=== PATIENT | male | born 1960 | race Caucasian/White ===

== ENCOUNTER 2017-08-09 21:32 | Emergency (ER) | payer MEDICARE, SELFPAY ==
[2017-08-09 21:33] VITALS: BP 157/100; PULSE 96; RESP 16; TEMP 37; O2SAT 96; BMI 36.0
--- NOTE | 2017-08-09 21:58 | CT_ITS ---
STUDY: CT BRAIN WITHOUT CONTRAST REASON FOR EXAM: Male, 56 years old. Syncope, fall. RADIATION DOSAGE (If Supplied By Facility): CTDIvol = ( 44.99 ) mGy, DLP = ( 779.24 ) mGycm TECHNIQUE: Transaxial CT imaging of the brain was performed without administration of intravenous contrast material. Individualized dose optimization techniques were used for this CT. COMPARISON: None. FINDINGS: Normal soft tissue structures. Normal calvarium. There is moderate cerebral atrophy with widening of the extra-axial spaces and ventricular dilatation. There are areas of decreased attenuation within the white matter tracts of the supratentorial brain, consistent with microvascular disease changes. Normal basal ganglia and thalami. Normal brainstem. Normal cerebellum. There is no intracranial hemorrhage. There are no findings of an acute ischemic infarction. Normal visualized paranasal sinuses. CT/Brain/Head without Contrast IMPRESSION: No evidence of acute intracranial bleed, mass or ischemia. Electronically Signed: Kenneth Samano DO at 22:52 EDT , Service support ,
--- NOTE | 2017-08-09 21:58 | EKG12_ITS ---
Test Reason : SYNCOPE Blood Pressure : / mmHG Vent. Rate : 099 BPM Atrial Rate : 099 BPM P-R Int : 184 ms QRS Dur : 100 ms QT Int : 364 ms P-R-T Axes : 066 -44 064 degrees QTc Int : 467 ms Normal sinus rhythm Left axis deviation Abnormal ECG Confirmed by TRACY SALAZAR, NEIL ([id number]), digital editor YSABEL BLANC ([id number]) on 08/11/2017 1:26:32 PM Referred By: FAROOQ/CARMITA Confirmed By:NEIL MOLINA MD
--- NOTE | 2017-08-09 21:58 | CT_ITS ---
STUDY: CT CERVICAL SPINE WITHOUT CONTRAST REASON FOR EXAM: Male, 56 years old. Fall. RADIATION DOSAGE (If Supplied By Facility): CTDIvol = ( 33.41 ) mGy, DLP = ( 803.16 ) mGycm TECHNIQUE: High resolution transaxial imaging was performed without contrast material. Sagittal and coronal images were reconstructed. Individualized dose optimization techniques were used for this CT. COMPARISON: None FINDINGS: Normal craniovertebral junction. There are degenerative changes of the anterior atlantoaxial articulation. Normal odontoid process. Normal cervical lordosis. Normal vertebral bodies and posterior osseous elements. C2-3: Normal endplates. Normal disc height and morphology. Normal central canal and intervertebral neuroforamina. C3-4: Decreased disc space with disc active by complex and uncovertebral joint arthropathy resulting in moderate right and mild left foraminal narrowing. C4-5: Decreased disc space with compounding uncovertebral joint arthropathy resulting in bilateral moderate foraminal narrowing. C5-6: Decreased disc space and disc osteophyte complex with compounding uncovertebral joint arthropathy resulting in bilateral severe foraminal narrowing. C6-7: Decreased disc space and disc osteophyte complex without significant spinal canal narrowing or foraminal narrowing. C7-T1: Degenerative disc changes without significant spinal canal narrowing or foraminal narrowing. Normal visualized soft tissue structures. CT/Spine Cervical without Contras IMPRESSION: Multilevel degenerative changes as above with no evidence of acute fracture or dislocation. Electronically Signed: Kenneth Samano DO at 22:56 EDT , Service support ,
--- NOTE | 2017-08-09 21:58 | RAD_ITS ---
STUDY: X-RAY CHEST REASON FOR EXAM: Male, 56 years old. Shortness of breath and fall. TECHNIQUE: PA and lateral views of the chest. COMPARISON: None. FINDINGS: The lungs are clear and expanded. There is no demonstrated pleural abnormality. Normal size heart. Normal mediastinum and tylor. Normal visualized pulmonary arteries. Normal visualized aortic arch and descending thoracic aorta. Normal visualized thoracic spine. Normal visualized ribs, clavicles, and shoulders. There is no demonstrated abnormality of the visualized soft tissue structures of the upper abdomen. RAD/Chest PA and Lateral IMPRESSION: No evidence of acute cardiopulmonary process. Electronically Signed: Kenneth Samano DO at 22:53 EDT , Service support ,
[2017-08-09 22:07] LABS: Absolute Lymphocyte Count 2.79 X10^3/ul (0.83-4.51); Absolute Neutrophil Count 2.7 X10^3/uL (2.0-7.7); Basophil# 0.01 X10^3/uL; Basophil% 0.2 % (0-1); Eosinophil# 0.07 X10^3/uL; Eosinophils% 1.2 % (0-5); Hematocrit 44.7 % (40-54); Hemoglobin 15.2 g/dl (13.0-16.5); Lymphocyte # 2.79 X10^3/ul (4.0); Lymphocyte % 46.5 % (19-41); Mean Corpuscular Hgb 29.7 pg (27.0-32.0); Mean Corpuscular Volume 87.3 fL (80-94); Mean Platelet Vol. 9.6 fl (6.2-12.0); Monocyte# 0.44 X10^3/uL; Monocyte% 7.3 % (0-10); Neutrophil # 2.69 X10^3/uL (2.7-7.7); Neutrophil % 44.8 % (47-70); POSITIVE COUNT NO; POSITIVE DIFFERENTIAL NO; POSITIVE MORPHOLOGY NO; Platelet Count 243 K/mm3 (150-450); RBC Distribution Width CV 13.7 % (11.6-14.6); RBC Distribution Width SD 43.8 fl (35.1-43.9); Red Blood Count 5.12 M/mm3 (4.6-6.2)
[2017-08-09 22:15] VITALS: PULSE 68; RESP 18; O2SAT 96
[2017-08-09] MEDS: Ipratropium/Albuterol Sulfate 3 ML AMPUL.NEB INHALATION (22:15)
[2017-08-09 22:32] LABS: Anion Gap 12 (5-15); BUN 11 mg/dL (7-18); BUN/Creat Ratio 10.9 RATIO (10-20); Calcium,Total 8.5 mg/dL (8.5-10.1); Chloride 92 mmol/L (98-107); Creatinine, Serum 1.01 mg/dL (0.70-1.30); EST Glomerular Filtration Rate 81 mL/min (>60); Est Glom Filt Rate - Afr Amer 98 mL/min (>60); Estimated Creatinine Clearance 93.82 ml/min; Glucose 99 mg/dL (74-106); Potassium 2.9 mmol/L (3.5-5.1); Sodium Level 133 mmol/L (136-145)
--- NOTE | 2017-08-09 23:07 | ED.VISSUMM ---
- ER Visit Summary Date of Service: 08/09/17 Chief Complaint: Syncope History of Present Illness: The patient is a 56 M who presents after a syncopal episode, which resulted in him falling out of his chair at the table he was sitting, to the floor injuring his right face and head. He states he has been passing out 3 times per day, every day, for the past 2-3 weeks. He states as it happened tonight, this has been occurring because of coughing hard/bronchospasm each and every time. He feels lightheaded and suddenly passes out during coughing fits. He had no prodromal chest pain, palpitations. No history of heart disease that he knows of. He has had a cough productive of sputum for the past 1-2 weeks, and was placed on doxycycline at the [facility] where he goes. No fevers. No chest pain. States that he drank 4 beers today right before this occurred. Physical Examination: Vital signs are unremarkable, his pulse ox is 96% on room air. He is keenly alert, GCS 15. He has obvious evidence of facial trauma on the right side with contusions and several superficial partial thickness lacerations to the right forehead and eyebrow, 1 cm each ?2, as well as a laceration of the right lower lip, close to the corner of his mouth, involving the vermilion border. This laceration is full-thickness and is approximately 1.5 cm, extending into the mouth mucosal surface. There is no intraoral injury, his midface is nontender and stable, PERRL, EOMI without pain or entrapment. Extremities are atraumatic, good range of motion at baseline with all 4. Heart is regular, he has expiratory wheezing throughout all lung linares and is in no respiratory distress there were no rales or rhonchi. Abdomen is benign. Back and neck nontender. Smells of alcohol but is not grossly intoxicated, is cooperative. Test Results: Labs are normal except for a potassium of 2.9. EKG shows a left axis but is otherwise normal. Chest x-ray shows no acute ab normality's or infiltrates. CT head and cervical spine are negative. Emergency Department Course and Treatment: Patient feels much better after a duo nebulizer treatment. He has been using his inhaler a lot at home, and is on doxycycline but no prednisone. He was given a dose of Solu-Medrol, in addition to a dose of oral potassium. His GCS maintained at 15. I do not think he has any midface fractures nor needs a CT of the maxillofacial bones given his relatively benign exam except for periorbital and right lateral facial ecchymosis, there is no sign of a basilar skull fracture on CT head. He had several facial lacerations, they were locally anesthetized with a total of 7 cc of plain 1% lidocaine, and prepped and draped in a sterile fashion with chlorhexidine, and washed with sterile saline. The one on his forehead was repaired with a total of #4 simple interrupted 6-0 nylon sutures. The one in his right eyebrow was repaired with a total of #3 simple interrupted 6-0 nylon sutures. His mouth/lower lip laceration was repaired with a total of #5 simple interrupted 6-0 nylon sutures, lining the vermilion border up well, and an additional #3 simple interrupted 4-0 chromic gut sutures on the mucosa. He has an injury to the right nasal bridge, where there is tissue loss and no cartilage is exposed and as I discussed with the patient, primary repair is not able to be easily performed. Therefore I recommend healing by secondary intent. A dressing was placed he was given appropriate discharge instructions for suture removal in approximately 5 or 6 days with his PCP or us in the ER. He is comfortable with this plan and has a ride home. Treatment Plan: As above. KCl 20 mEq 3 times daily ?4 days. Prednisone 40 mg daily ?4 additional days. Disposition: Discharge home Impression: Acute COPD exacerbation Vasovagal syncope Acute bronchitis with bronchospasm Hypokalemia Facial laceration ?3 with repair ?3 This note was generated with [employer] dictation software. It may contain incorrect words, spelling, and punctuation that were not noted in review of the chart prior to signing ED Disposition - Plan for ED Patient: Disposition: Home or Assisted Living Chief Complaint: Syncope Instructions: ED Syncope Vasovagal, ED Laceration Mouth, ED Laceration Facial Sutr Tape, ED COPD Flare Prescriptions: Prednisone [Deltasone] 40 mg PO DAILY #8 tab Potassium Chloride [K-Dur] 20 meq PO TID #12 tab Referrals: Maia Feliz, JAZ-C [Primary Care Provider] - 5 Days for suture removal
--- NOTE | 2017-08-09 23:24 | ED.DCSUM_ITS ---
- ER Visit Summary Date of Service: 08/09/17 Chief Complaint: Syncope History of Present Illness: The patient is a 56 M who presents after a syncopal episode, which resulted in him falling out of his chair at the table he was sitting, to the floor injuring his right face and head. He states he has been passing out 3 times per day, every day, for the past 2-3 weeks. He states as it happened tonight, this has been occurring because of coughing hard/ bronchospasm each and every time. He feels lightheaded and suddenly passes out during coughing fits. He had no prodromal chest pain, palpitations. No history of heart disease that he knows of. He has had a cough productive of sputum for the past 1-2 weeks, and was placed on doxycycline at the [facility] where he goes. No fevers. No chest pain. States that he drank 4 beers today right before this occurred. Physical Examination: Vital signs are unremarkable, his pulse ox is 96% on room air. He is keenly alert, GCS 15. He has obvious evidence of facial trauma on the right side with contusions and several superficial partial thickness lacerations to the right forehead and eyebrow, 1 cm each ?2, as well as a laceration of the right lower lip, close to the corner of his mouth, involving the vermilion border. This laceration is full-thickness and is approximately 1.5 cm, extending into the mouth mucosal surface. There is no intraoral injury , his midface is nontender and stable, PERRL, EOMI without pain or entrapment. Extremities are atraumatic, good range of motion at baseline with all 4. Heart is regular, he has expiratory wheezing throughout all lung linares and is in no respiratory distress there were no rales or rhonchi. Abdomen is benign. Back and neck nontender. Smells of alcohol but is not grossly intoxicated, is cooperative. Test Results: Labs are normal except for a potassium of 2.9. EKG shows a left axis but is otherwise normal. Chest x-ray shows no acute ab normality's or infiltrates. CT head and cervical spine are negative. Emergency Department Course and Treatment: Patient feels much better after a duo nebulizer treatment. He has been using his inhaler a lot at home, and is on doxycycline but no prednisone. He was given a dose of Solu-Medrol, in addition to a dose of oral potassium. His GCS maintained at 15. I do not think he has any midface fractures nor needs a CT of the maxillofacial bones given his relatively benign exam except for periorbital and right lateral facial ecchymosis, there is no sign of a basilar skull fracture on CT head. He had several facial lacerations, they were locally anesthetized with a total of 7 cc of plain 1% lidocaine, and prepped and draped in a sterile fashion with chlorhexidine, and washed with sterile saline. The one on his forehead was repaired with a total of #4 simple interrupted 6-0 nylon sutures. The one in his right eyebrow was repaired with a total of #3 simple interrupted 6-0 nylon sutures. His mouth/lower lip laceration was repaired with a total of #5 simple interrupted 6-0 nylon sutures, lining the vermilion border up well, and an additional #3 simple interrupted 4-0 chromic gut sutures on the mucosa. He has an injury to the right nasal bridge, where there is tissue loss and no cartilage is exposed and as I discussed with the patient, primary repair is not able to be easily performed. Therefore I recommend healing by secondary intent. A dressing was placed he was given appropriate discharge instructions for suture removal in approximately 5 or 6 days with his PCP or us in the ER. He is comfortable with this plan and has a ride home. Treatment Plan: As above. KCl 20 mEq 3 times daily ?4 days. Prednisone 40 mg daily ?4 additional days. Disposition: Discharge home Impression: Acute COPD exacerbation Vasovagal syncope Acute bronchitis with bronchospasm Hypokalemia Facial laceration ?3 with repair ?3 This note was generated with [employer] dictation software. It may contain incorrect words, spelling, and punctuation that were not noted in review of the chart prior to signing ED Disposition - Plan for ED Patient: Disposition: Home or Assisted Living Chief Complaint: Syncope Instructions: ED Syncope Vasovagal, ED Laceration Mouth, ED Laceration Facial Sutr Tape, ED COPD Flare Prescriptions: Prednisone [Deltasone] 40 mg PO DAILY #8 tab Potassium Chloride [K-Dur] 20 meq PO TID #12 tab Referrals: Maia Feliz, JAZ-C [Primary Care Provider] - 5 Days for suture removal
[2017-08-09 23:42] VITALS: BP 133/67; PULSE 52; RESP 16; O2SAT 98
[2017-08-10] MEDS: MethylPREDNISolone 125 MG/2 ML Vial IV (00:33)
[2017-08-10 00:34] VITALS: BP 140/93; PULSE 100; RESP 25; O2SAT 97
== END 2017-08-10 00:44 | disposition home or self-care (01) ==
PROVIDERS: Emergency Provider Emergency Medicine; Family Provider Nurse Practitioner Family; PCP Nurse Practitioner Family
DX: J44.1 Chronic obstructive pulmonary disease with (acute) exacerbation (principal); R55 Syncope and collapse; J20.9 Acute bronchitis, unspecified; E87.6 Hypokalemia; S01.511A Laceration without foreign body of lip, initial encounter; W07.XXXA Fall from chair, initial encounter; Y93.9 Activity, unspecified; Y92.000 Kitchen of unspecified non-institutional (private) residence as the place of occurrence of the external cause; Y99.9 Unspecified external cause status; I10 Essential (primary) hypertension; E78.00 Pure hypercholesterolemia, unspecified; Z72.0 Tobacco use
CPT/HCPCS: 12011; 70450; 71046; 72125; 80048; 84484; 85025; 93005; 94640; 99285; J7030; A4216

== ENCOUNTER → 2019-10-28 11:05 | Outpatient (CLI) | payer MEDICARE, SELFPAY ==
--- NOTE | 2019-10-28 11:17 | RAD_ITS ---
STUDY: X-RAY - LUMBAR SPINE REASON FOR EXAM: Male, 59 years old. Low back pain, pain runs into legs TECHNIQUE: 3 view(s) of the lumbar spine were obtained. COMPARISON: None FINDINGS: Normal lumbar lordosis. There is no substantial scoliosis. There is a normal alignment of the vertebrae. There is multilevel endplate spondylosis of the lumbar vertebrae. Normal disc space heights. There is no demonstrated fracture. The soft tissue structures are unremarkable. RAD/Lumbar Spine 2 or 3 Views IMPRESSION: Mild degenerative changes, no acute findings Electronically Signed: Walter Vaz MD at 16:52 EDT , Service support ,
--- NOTE | 2019-10-28 11:17 | RAD_ITS ---
STUDY: X-RAY - THORACIC SPINE REASON FOR EXAM: Male, 59 years old. Mid back pain TECHNIQUE: 4 view(s) of the thoracic spine were obtained. COMPARISON: None. FINDINGS: Normal kyphosis of the thoracic spine. There is no substantial scoliosis. Normal thoracic vertebrae and endplates. Mild disc space narrowing in the thoracic spine. The soft tissue structures are unremarkable. RAD/Thoracic Spine 3 Views IMPRESSION: Mild degenerative changes Electronically Signed: Walter Vaz MD at 16:52 EDT , Service support ,
--- NOTE | 2019-10-28 11:20 | RAD_ITS ---
STUDY: X-RAY CHEST REASON FOR EXAM: Male, 59 years old. Shortness of breath, low O2 TECHNIQUE: PA and lateral views of the chest. COMPARISON: Comparison is made with prior study dated August 09, 2018. FINDINGS: Hyperinflation. The lungs are clear. There is no demonstrated pleural abnormality. Normal size heart. Normal mediastinum and tylor. Normal visualized pulmonary arteries. There is atherosclerotic tortuosity of the aortic arch and descending thoracic aorta. There are degenerative changes of the visualized thoracic spine. Normal visualized ribs, clavicles, and shoulders. Hiatal hernia. RAD/Chest PA and Lateral IMPRESSION: Hyperinflation. The lungs are clear. Hiatal hernia. Electronically Signed: William Karimi, at 12:04 EDT , Service support ,
== END ==
PROVIDERS: Visit Provider Nurse Practitioner Family
DX: R06.00 Dyspnea, unspecified (principal); M54.5 Low back pain
CPT/HCPCS: 71046; 72072; 72100

== ENCOUNTER → 2020-02-15 | Outpatient (CLI) | payer MEDICARE, SELFPAY ==
[2020-02-15 11:24] LABS: Absolute Lymphocyte Count 2.84 X10^3/uL (0.83-4.51); Absolute Neutrophil Count 6.4 X10^3/uL (2.0-7.7); Basophil# 0.04 X10^3/uL; Basophil% 0.4 % (0-1); Eosinophil# 0.14 X10^3/uL; Eosinophils% 1.4 % (0-5); Hematocrit 44.3 % (40-54); Hemoglobin 13.6 g/dL (13.0-16.5); Lymphocyte # 2.84 X10^3/ul (4.0); Lymphocyte % 27.7 % (19-41); Mean Corp Hgb Conc 30.7 g/dL (32-36); Mean Corpuscular Hgb 25.4 pg (27.0-32.0); Mean Corpuscular Volume 82.8 fL (80-94); Monocyte# 0.76 X10^3/uL; Monocyte% 7.4 % (0-10); NRBC Flagged by Analyzer 0 % (0-5); Neutrophil # 6.41 X10^3/uL (2.7-7.7); Neutrophil % 62.6 % (47-70); Platelet Count 322 K/mm3 (150-450); RBC Distribution Width CV 15.2 % (11.6-14.6); RBC Distribution Width SD 45.3 fl (35.1-43.9); Red Blood Count 5.35 M/mm3 (4.6-6.2); White Blood Count 10.2 K/mm3 (4.4-11.0)
[2020-02-15 11:41] LABS: Hemoglobin A1c 6.8 % (3.8-5.6)
[2020-02-15 11:49] LABS: ALB/GLOB Ratio 0.8 RATIO (0.9-2.4); AST(SGOT) 19 U/L (15-37); Alanine Aminotransfer ALT/SGPT 32 U/L (16-61); Albumin, Serum 3.5 g/dL (3.2-5.0); Alkaline Phosphatase 121 U/L (45-117); Anion Gap 8 (5-15); BUN 6 mg/dL (7-18); BUN/Creat Ratio 5.7 RATIO (10-20); Chloride 103 mmol/L (98-107); Cholesterol 156 mg/dL (200); Creatinine, Serum 1.05 mg/dL (0.70-1.30); EST Glomerular Filtration Rate 76 mL/min (>60); Est Glom Filt Rate - Afr Amer 93 mL/min (>60); Globulin 4.2 g/dL (2.2-4.2); Glucose 126 mg/dL (74-106); High Density Lipoprotein 43 mg/dL; Potassium 3.6 mmol/L (3.5-5.1); Protein, Total 7.7 g/dL (6.4-8.2); Sodium Level 140 mmol/L (136-145); Triglycerides 166 mg/dL; Very Low Density Lipoprotein 33 mg/dL (5-40)
[2020-02-15 11:50] LABS: Vitamin D,25 Hydroxy 35.1 ng/mL
== END | disposition home or self-care (01) ==
DX: I10 Essential (primary) hypertension (principal); I25.10 Atherosclerotic heart disease of native coronary artery without angina pectoris; E78.5 Hyperlipidemia, unspecified; E11.9 Type 2 diabetes mellitus without complications; E55.9 Vitamin D deficiency, unspecified
CPT/HCPCS: 36415; 80053; 80061; 82306; 83036; 85025

== ENCOUNTER → 2021-03-27 08:59 | Outpatient (CLI) | payer MEDICARE, SELFPAY ==
[2021-03-27 09:56] LABS: Absolute Lymphocyte Count 2.31 X10^3/uL (0.83-4.51); Absolute Neutrophil Count 5.3 X10^3/uL (2.0-7.7); Basophil# 0.02 X10^3/uL; Basophil% 0.2 % (0-1); Eosinophils% 1.2 % (0-5); Hematocrit 45.2 % (40-54); Hemoglobin 14.7 g/dL (13.0-16.5); Lymphocyte # 2.31 X10^3/ul (0.83-4.51); Lymphocyte % 27.8 % (19-41); Mean Corp Hgb Conc 32.5 g/dL (32-36); Mean Corpuscular Hgb 28.4 pg (27.0-32.0); Mean Corpuscular Volume 87.3 fL (80-94); Mean Platelet Vol. 9.5 fl (6.2-12.0); Monocyte% 7.2 % (0-10); NRBC Flagged by Analyzer 0 % (0-5); Neutrophil # 5.25 X10^3/uL (2.7-7.7); Neutrophil % 63.1 % (47-70); Platelet Count 233 K/mm3 (150-450); RBC Distribution Width CV 14.1 % (11.6-14.6); RBC Distribution Width SD 45.1 fl (35.1-43.9); Red Blood Count 5.18 M/mm3 (4.6-6.2); White Blood Count 8.3 K/mm3 (4.4-11.0)
[2021-03-27 10:55] LABS: ALB/GLOB Ratio 0.8 RATIO (0.9-2.4); AST(SGOT) 38 U/L (15-37); Alanine Aminotransfer ALT/SGPT 63 U/L (16-61); Albumin, Serum 3.5 g/dL (3.2-5.0); Alkaline Phosphatase 86 U/L (45-117); BUN 9 mg/dL (7-18); BUN/Creat Ratio 8.1 RATIO (10-20); Calcium,Total 8.9 mg/dL (8.5-10.1); Chloride 103 mmol/L (98-107); Cholesterol 237 mg/dL (200); Creatinine, Serum 1.11 mg/dL (0.70-1.30); EST Glomerular Filtration Rate 71 mL/min (>60); Est Glom Filt Rate - Afr Amer 86 mL/min (>60); Globulin 4.2 g/dL (2.2-4.2); Glucose 112 mg/dL (74-106); Potassium 4.2 mmol/L (3.5-5.1); Protein, Total 7.7 g/dL (6.4-8.2); Sodium Level 137 mmol/L (136-145); Triglycerides 105 mg/dL; Uric Acid 6.2 mg/dL (3.5-7.2)
[2021-03-27 10:56] LABS: Anion Gap 8 (5-15); High Density Lipoprotein 41 mg/dL; Thyroid Stim Hormone (TSH) 1.88 uIU/mL (0.358-3.74); Very Low Density Lipoprotein 21 mg/dL (5-40)
== END ==
LOC: LAB 09:03
PROVIDERS: Referring Provider Nurse Practitioner Adult Health; Visit Provider Nurse Practitioner Adult Health
DX: I10 Essential (primary) hypertension (principal); E78.5 Hyperlipidemia, unspecified; M10.9 Gout, unspecified; E11.9 Type 2 diabetes mellitus without complications
CPT/HCPCS: 36415; 80053; 80061; 83036; 84443; 84550; 85025

== ENCOUNTER → 2021-04-10 08:49 | Outpatient (CLI) | payer MEDICARE, SELFPAY ==
--- NOTE | 2021-04-10 08:54 | RDU_ITS ---
Reason For Study: HTN Right Renal Artery Left Renal Artery Right renal artery ostium 78.3/25.4 Left renal artery ostium 101.2/28.8 RSV/EDV. PSV/EDV. Right renal artery proximal Left renal artery proximal PSV/EDV 102.1/36.3 PSV/EDV. 109.5/32.7 . Right renal artery mid 74.7/23.6 Left renal artery mid 83.2/23.9 PSV/EDV. PSV/EDV . Right renal artery distal 91.1/32.7 Left renal artery distal 83.2/32.7 PSV/EDV. PSV/EDV. Right RAR 1.32. Left RAR 1.42. Right Renal Parenchyma Left Renal Parenchyma Upper Pole Medula 40.1/12.7 Left upper pole medulla 34.6/13.6 PSV/EDV. PSV/EDV . Right upper pole medulla EDR 0.32 . Left upper pole medulla EDR 0.39 . Right upper pole medulla R.I. Left upper pole medulla R.I. 0.61 . 0.68 . UP Cortex 19.1/7.2 PSV/EDV. Upper Adis Cortx 28.2/10.9 PSV/EDV. Left upper pole cortex EDR 0.38 . Right upper pole cortex EDR 0.39 . Left upper pole cortex R.I. 0.62 . Right upper pole cortex R.I. 0.61 . Left lower Pole medulla 37.3/11.8 Right lower Pole medulla 34.6/10.9 PSV/EDV . PSV/EDV . Left lower pole medulla EDR 0.32 . Right lower pole medulla EDR 0.31 . Left lower pole medulla R.I. 0.68 . Right lower pole medulla R.I. Lower Pole Cortx 19.1/7.2 PSV/EDV. 0.69 . Left lower pole cortex EDR 0.38 . Lower Pole Cortex 23.7/8.1 PSV/EDV. Left lower pole cortex R.I. 0.62 . Right lower pole cortex EDR 0.34 . Left Renal Hilar Right lower pole cortex R.I. 0.66 . LT Hilar avg 57/18.2 PSV/EDV . Right Renal Hilar Left hilar acceleration time 60 Right Hilar avg 54.3/20.1 PSV/EDV. m/sec. Right hilar acceleration time 80 Left Renal Dimensions m/sec. Left kidney size 11.10 cm . Right Renal Dimensions Left cortical dimension 1.49 cm . Right kidney size 10.58 cm . Right cortical dimension 1.88 cm . Aorta Proximal abdominal aorta 1.63 x 1.61 cm . Proximal abdominal aorta peak systolic velocity is 77.3 cm/sec . Distal abdominal aorta 1.83 x 1.79 cm . Distal abdominal aorta peak systolic velocity is 103.9 cm/sec . VL/Renal Artery Duplex Ultrasound Interpretation Summary Less than 60% stenosis bilateral renal arteries Right renal length 10.58 cm Left renal length 11.1 cm Normal aortic diameter maximum distally at 1.83 x 1.79 cm in diameter. Velocity flow was normal in the proximal abdominal aorta Imaging appears to be technically challenging No clinically significant change since the previous examination of December 25 Ordering Physician: Vilma Fuentes Referring Physician: [facility] Performed By: Lizet Gonzales RVT
== END ==
PROVIDERS: Referring Provider Nurse Practitioner Adult Health; Visit Provider Nurse Practitioner Adult Health
DX: I10 Essential (primary) hypertension (principal)
CPT/HCPCS: 93975

== ENCOUNTER → 2022-07-29 | Outpatient (CLI) | payer MEDICARE, SELFPAY ==
[2022-07-29 10:27] LABS: Absolute Lymphocyte Count 2.61 X10^3/uL (0.83-4.51); Absolute Neutrophil Count 5.7 X10^3/uL (2.0-7.7); Basophil# 0.03 X10^3/uL; Basophil% 0.3 % (0-1); Eosinophil# 0.08 X10^3/uL; Eosinophils% 0.9 % (0-5); Hematocrit 47.4 % (40-54); Hemoglobin 15.1 g/dL (13.0-16.5); Lymphocyte # 2.61 X10^3/ul (0.83-4.51); Lymphocyte % 28.6 % (19-41); Mean Corp Hgb Conc 31.9 g/dL (32-36); Mean Corpuscular Volume 87.8 fL (80-94); Mean Platelet Vol. 8.7 fl (6.2-12.0); Monocyte% 7.7 % (0-10); NRBC Flagged by Analyzer 0 % (0-5); Neutrophil # 5.69 X10^3/uL (2.7-7.7); Neutrophil % 62.4 % (47-70); Platelet Count 249 K/mm3 (150-450); RBC Distribution Width CV 14.6 % (11.6-14.6); RBC Distribution Width SD 46.5 fl (35.1-43.9); White Blood Count 9.1 K/mm3 (4.4-11.0)
[2022-07-29 10:42] LABS: Hemoglobin A1c 5.9 % (3.8-5.6)
[2022-07-29 11:26] LABS: ALB/GLOB Ratio 0.9 RATIO (0.9-2.4); AST(SGOT) 46 U/L (15-37); Alanine Aminotransfer ALT/SGPT 49 U/L (16-61); Albumin, Serum 3.6 g/dL (3.2-5.0); Alkaline Phosphatase 82 U/L (45-117); Anion Gap 7 (5-15); BUN 7 mg/dL (7-18); BUN/Creat Ratio 6.5 RATIO (10-20); Chloride 101 mmol/L (98-107); Cholesterol 223 mg/dL (200); Creatinine, Serum 1.07 mg/dL (0.70-1.30); EST Glomerular Filtration Rate 74 mL/min (>60); Est Glom Filt Rate - Afr Amer 90 mL/min (>60); Globulin 4.2 g/dL (2.2-4.2); Glucose 120 mg/dL (74-106); High Density Lipoprotein 49 mg/dL; Potassium 4.2 mmol/L (3.5-5.1); Protein, Total 7.8 g/dL (6.4-8.2); Sodium Level 137 mmol/L (136-145); Triglycerides 86 mg/dL; Very Low Density Lipoprotein 17 mg/dL (5-40)
== END | disposition home or self-care (01) ==
PROVIDERS: Nurse Practitioner Family
DX: I10 Essential (primary) hypertension (principal); E11.9 Type 2 diabetes mellitus without complications; E78.5 Hyperlipidemia, unspecified
CPT/HCPCS: 36415; 80053; 80061; 83036; 85025

== ENCOUNTER → 2024-04-13 | Outpatient (CLI) | payer MEDICARE, SELFPAY ==
[2024-04-13 12:45] LABS: Absolute Lymphocyte Count 1.84 X10^3/uL (0.83-4.51); Absolute Neutrophil Count 6.1 X10^3/uL (2.0-7.7); Basophil# 0.04 X10^3/uL; Basophil% 0.5 % (0-1); Eosinophil# 0.07 X10^3/uL; Eosinophils% 0.8 % (0-5); Hematocrit 47.6 % (40-54); Hemoglobin 15.5 g/dL (13.0-16.5); Lymphocyte # 1.84 X10^3/ul (0.83-4.51); Lymphocyte % 21.2 % (19-41); Mean Corp Hgb Conc 32.6 g/dL (32-36); Mean Corpuscular Hgb 27.9 pg (27.0-32.0); Mean Corpuscular Volume 85.8 fL (80-94); Mean Platelet Vol. 9.5 fl (6.2-12.0); Monocyte% 6.9 % (0-10); NRBC Flagged by Analyzer 0 % (0-5); Neutrophil # 6.11 X10^3/uL (2.7-7.7); Neutrophil % 70.5 % (47-70); Platelet Count 239 K/mm3 (150-450); RBC Distribution Width SD 43.8 fl (35.1-43.9); Red Blood Count 5.55 M/mm3 (4.6-6.2); White Blood Count 8.7 K/mm3 (4.4-11.0)
[2024-04-13 13:03] LABS: Hemoglobin A1c 5.4 % (3.8-5.6)
[2024-04-13 13:19] LABS: Vitamin D,25 Hydroxy 33.6 ng/mL
[2024-04-13 13:28] LABS: AST(SGOT) 20 U/L (15-37); Alanine Aminotransfer ALT/SGPT 31 U/L (16-61); Albumin, Serum 3.8 g/dL (3.2-5.0); Alkaline Phosphatase 88 U/L (45-117); Anion Gap 7 (5-15); BUN 9 mg/dL (7-18); BUN/Creat Ratio 8.2 RATIO (10-20); Calcium,Total 8.9 mg/dL (8.5-10.1); Chloride 105 mmol/L (98-107); Cholesterol 184 mg/dL (200); EST Glomerular Filtration Rate 72 mL/min (>60); Est Glom Filt Rate - Afr Amer 87 mL/min (>60); Globulin 3.7 g/dL (2.2-4.2); Glucose 149 mg/dL (74-106); High Density Lipoprotein 61 mg/dL; PSA,Total - Annual Screen 0.17 ng/mL (0.00-4.00); Protein, Total 7.5 g/dL (6.4-8.2); Sodium Level 139 mmol/L (136-145); Triglycerides 65 mg/dL; Very Low Density Lipoprotein 13 mg/dL (5-40)
== END | disposition home or self-care (01) ==
LOC: VSLAB 12:09
PROVIDERS: PCP Nurse Practitioner Family; Visit Provider Nurse Practitioner Family
DX: Z12.5 Encounter for screening for malignant neoplasm of prostate (principal); R73.03 Prediabetes; I10 Essential (primary) hypertension; E55.9 Vitamin D deficiency, unspecified; I25.10 Atherosclerotic heart disease of native coronary artery without angina pectoris
CPT/HCPCS: 36415; 80053; 80061; 82306; 83036; 84153; 84443; 85025; G0103

== ENCOUNTER → 2025-02-28 | Outpatient (CLI) | payer MEDICARE, SELFPAY ==
[2025-02-28 10:05] LABS: Hematocrit 46.7 % (40-54); Hemoglobin 16.1 g/dL (13.0-16.5); Immature Granulocytes Count 0.030 X10^3/uL (0.0-0.0); Mean Corp Hgb Conc 34.5 g/dL (32-36); Mean Corpuscular Volume 93.4 fL (80-94); Mean Platelet Vol. 9.1 fl (6.2-12.0); NRBC Flagged by Analyzer 0 % (0-5); Platelet Count 172 K/mm3 (150-450); RBC Distribution Width CV 12.2 % (11.6-14.6); RBC Distribution Width SD 41.9 fl (35.1-43.9); Red Blood Count 5.00 M/mm3 (4.6-6.2); White Blood Count 7.3 K/mm3 (4.4-11.0)
--- OUTSIDE RECORDS SUMMARY | 2025-02-28 10:07 | XMS RPT_ITS | CCD ---
Author Organization [facility] Care Team Providers Care Utility Sales And Service Manager Name Role Phone YOU BAUTISTA, OLIVIER Attending Unava ilelinor PHYSICIAN, NONE Primary Care Unavailable You CORTEZ, Olivier Attending Unavailabl e You C, Olivier Primary Care Unavailabl e You VSC, Olivier Attending Unavailabl e You C, Olivier Primary Care Unavailabl e Problems Problem Classification Problem Date Documented Da te Episodic/Chronic Other screening for suspected conditions (not mental disorders or infectious disease) (1 source) Encounter for screening for malignant neoplasm of prostate; Translations: [Encounter for screening for malignant neoplasm of prostate] Onset: 05-12-2024 Episodic Results Test Name Value Interpretation Reference Range Facil ity CBC W/Diff, Automatedon 12-0 Absolute Lymph 1.84 X10 3/uL Normal 0.83-4.51 [facility] Comment on above: Performed By: #### L 500.4050, L501.9520, L501.9910, L100.0100, L506.1000, L500.4100, L501.9985 #### [facility] [address] [place], [address] Absolute Neut 6.1 X10 3/uL Normal 2.0-7.7 [facility] Comment on above: Performed By: #### L 500.4050, L501.9520, L501.9910, L100.0100, L506.1000, L500.4100, L501.9985 #### [facility] [address] [place], [address] Basophils/100 WBC (Bld) 0.5 % Normal 0-1 [facility] Comment on above: Performed By: #### L 500.4050, L501.9520, L501.9910, L100.0100, L506.1000, L500.4100, L501.9985 #### [facility] [address] [place], [address] Eosinophils/100 WBC (Bld) 0.8 % Normal 0-5 [facility] Comment on above: Performed By: #### L 500.4050, L501.9520, L501.9910, L100.0100, L506.1000, L500.4100, L501.9985 #### [facility] [address] [place], [address] Erythrocyte distribution width (RBC) [Ratio] 14.0 % Normal 11.6-14.6 [facility] Comment on above: Performed By: #### L 500.4050, L501.9520, L501.9910, L100.0100, L506.1000, L500.4100, L501.9985 #### [facility] [address] [place], [address] Hematocrit (Bld) [Volume fraction] 47.6 % Normal 40-54 [facility] Comment on above: Performed By: #### L 500.4050, L501.9520, L501.9910, L100.0100, L506.1000, L500.4100, L501.9985 #### [facility] [address] [place], [address] Hemoglobin (Bld) [Mass/Vol] 15.5 g/dL Normal 13.0-16.5 [facility] Comment on above: Performed By: #### L 500.4050, L501.9520, L501.9910, L100.0100, L506.1000, L500.4100, L501.9985 #### [facility] [address] [place], [address] IG% 0.100 Normal 0.0-0.9 [facility] Comment on above: Result Comment: IG% - Immature Granulocytes (promyelocytes, myelocytes and metamyelocytes) > 1% indicates that a LEFT SHIFT is Present. Performed By: #### L 500.4050, L501.9520, L501.9910, L100.0100, L506.1000, L500.4100, L501.9985 #### [facility] [address] [place], [address] Lymphocytes/100 WBC (Bld) 21.2 % Normal 19-41 [facility] Comment on above: Performed By: #### L 500.4050, L501.9520, L501.9910, L100.0100, L506.1000, L500.4100, L501.9985 #### [facility] [address] [place], [address] MCH (RBC) [Entitic mass] 27.9 pg Normal 27.0-32.0 [facility] Comment on above: Performed By: #### L 500.4050, L501.9520, L501.9910, L100.0100, L506.1000, L500.4100, L501.9985 #### [facility] [address] [place], [address] MCHC (RBC) [Mass/Vol] 32.6 g/dL Normal 32-36 [facility] Comment on above: Performed By: #### L 500.4050, L501.9520, L501.9910, L100.0100, L506.1000, L500.4100, L501.9985 #### [facility] [address] [place], [address] MCV (RBC) [Entitic vol] 85.8 fL Normal 80-94 [facility] Comment on above: Performed By: #### L 500.4050, L501.9520, L501.9910, L100.0100, L506.1000, L500.4100, L501.9985 #### [facility] [address] [place], [address] Monocytes/100 WBC (Bld) 6.9 % Normal 0-10 [facility] Comment on above: Performed By: #### L 500.4050, L501.9520, L501.9910, L100.0100, L506.1000, L500.4100, L501.9985 #### [facility] [address] [place], [address] Neutrophils/100 WBC (Bld) 70.5 % High 47-70 [facility] Comment on above: Performed By: #### L 500.4050, L501.9520, L501.9910, L100.0100, L506.1000, L500.4100, L501.9985 #### [facility] [address] [place], [address] Nucleated RBC (Bld) [#/Vol] 0 10*3/uL Normal 0-5 [facility] Comment on above: Performed By: #### L 500.4050, L501.9520, L501.9910, L100.0100, L506.1000, L500.4100, L501.9985 #### [facility] [address] [place], [address] Platelet mean volume (Bld) [Entitic vol] 9.5 fL Normal 6.2-12.0 [facility] Comment on above: Performed By: #### L 500.4050, L501.9520, L501.9910, L100.0100, L506.1000, L500.4100, L501.9985 #### [facility] [address] [place], [address] Platelets (Bld) [#/Vol] 239 10*3/uL Normal 150-450 [facility] Comment on above: Performed By: #### L 500.4050, L501.9520, L501.9910, L100.0100, L506.1000, L500.4100, L501.9985 #### [facility] [address] [place], [address] RBC (Bld) [#/Vol] 5.55 10*6/uL Normal 4.6-6.2 [facility] Comment on above: Performed By: #### L 500.4050, L501.9520, L501.9910, L100.0100, L506.1000, L500.4100, L501.9985 #### [facility] [address] [place], [address] RDW SD 43.8 fl Normal 35.1-43.9 [facility] Comment on above: Performed By: #### L 500.4050, L501.9520, L501.9910, L100.0100, L506.1000, L500.4100, L501.9985 #### [facility] [address] [place], [address] WBC (Bld) [#/Vol] 8.7 10*3/uL Normal 4.4-11.0 [facility] Comment on above: Performed By: #### L 500.4050, L501.9520, L501.9910, L100.0100, L506.1000, L500.4100, L501.9985 #### [facility] [address] [place], [address] Comprehensive Metabolic Prof ilon 04-13-2024 Albumin [Mass/Vol] 3.8 g/dL Normal 3.2-5.0 [facility] Comment on above: Performed By: #### L 500.4050, L501.9520, L501.9910, L100.0100, L506.1000, L500.4100, L501.9985 #### [facility] [address] [place], [address] Albumin/Globulin [Mass ratio] 1.0 {ratio} Normal 0.9-2.4 [facility] Comment on above: Performed By: #### L 500.4050, L501.9520, L501.9910, L100.0100, L506.1000, L500.4100, L501.9985 #### [facility] [address] [place], [address] ALK P 88 U/L Normal 45-117 [facility] Comment on above: Performed By: #### L 500.4050, L501.9520, L501.9910, L100.0100, L506.1000, L500.4100, L501.9985 #### [facility] [address] [place], [address] ALT [Catalytic activity/Vol] 31 U/L Normal 16-61 [facility] Comment on above: Performed By: #### L 500.4050, L501.9520, L501.9910, L100.0100, L506.1000, L500.4100, L501.9985 #### [facility] [address] [place], [address] AST [Catalytic activity/Vol] 20 U/L Normal 15-37 [facility] Comment on above: Performed By: #### L 500.4050, L501.9520, L501.9910, L100.0100, L506.1000, L500.4100, L501.9985 #### [facility] [address] [place], [address] Bilirubin [Mass/Vol] 0.50 mg/dL Normal 0.20-1.00 [facility] Comment on above: Result Comment: For patients on eltrombopag therapy, use of Dimension [place] TBIL is not recommended. Performed By: #### L 500.4050, L501.9520, L501.9910, L100.0100, L506.1000, L500.4100, L501.9985 #### [facility] [address] [place], [address] BUN/CRE 8.2 RATIO Low 10-20 [facility] Comment on above: Performed By: #### L 500.4050, L501.9520, L501.9910, L100.0100, L506.1000, L500.4100, L501.9985 #### [facility] [address] [place], [address] CA,Total 8.9 mg/dL Normal 8.5-10.1 [facility] Comment on above: Performed By: #### L 500.4050, L501.9520, L501.9910, L100.0100, L506.1000, L500.4100, L501.9985 #### [facility] [address] [place], [address] Chloride [Moles/Vol] 105 mmol/L Normal 98-107 [facility] Comment on above: Performed By: #### L 500.4050, L501.9520, L501.9910, L100.0100, L506.1000, L500.4100, L501.9985 #### [facility] [address] [place], [address] CO2 [Moles/Vol] 27.0 mmol/L Normal 21.0-32.0 [facility] Comment on above: Performed By: #### L 500.4050, L501.9520, L501.9910, L100.0100, L506.1000, L500.4100, L501.9985 #### [facility] [address] [place], [address] Creatinine [Mass/Vol] 1.10 mg/dL Normal 0.70-1.30 [facility] Comment on above: Result Comment: The validity of the calculated GFR GFRAA in patients over 70 years has not been determined. Clinical correlation is essential. Performed By: #### L 500.4050, L501.9520, L501.9910, L100.0100, L506.1000, L500.4100, L501.9985 #### [facility] [address] [place], [place], [id number] (009 EST GFR - AA 87 mL/min Normal >60 [facility] Comment on above: Result Comment: Afri can Beninese GFR Calc Performed By: #### L 500.4050, L501.9520, L501.9910, L100.0100, L506.1000, L500.4100, L501.9985 #### [facility] [address] [place], [place], [id number] (705) GAP 7 Normal 5-15 [facility] Comment on above: Performed By: #### L 500.4050, L501.9520, L501.9910, L100.0100, L506.1000, L500.4100, L501.9985 #### [facility] [address] [place], [place], [id number] ([address] GFR/1.73 sq M.predicted among non-blacks MDRD (S/P/Bld) [Vol rate/Area] 72 mL/min/{1.73_m2} Normal >60 [facility] Comment on above: Result Comment: Non- GFR Calc Performed By: #### L 500.4050, L501.9520, L501.9910, L100.0100, L506.1000, L500.4100, L501.9985 #### [facility] [address] [place], [address] Globulin (S) [Mass/Vol] 3.7 g/dL Normal 2.2-4.2 [facility] Comment on above: Performed By: #### L 500.4050, L501.9520, L501.9910, L100.0100, L506.1000, L500.4100, L501.9985 #### [facility] [address] [place], [address] Glucose [Mass/Vol] 149 mg/dL High 74-106 [facility] Comment on above: Result Comment: Fast ing Glucose result greater than or equal to 126 mg/dL suggests DIABETES MELLITUS per A.D.A. criteria. Performed By: #### L 500.4050, L501.9520, L501.9910, L100.0100, L506.1000, L500.4100, L501.9985 #### [facility] [address] [place], [address] Potassium [Moles/Vol] 4.0 mmol/L Normal 3.5-5.1 [facility] Comment on above: Performed By: #### L 500.4050, L501.9520, L501.9910, L100.0100, L506.1000, L500.4100, L501.9985 #### [facility] [address] [place], [address] Sodium [Moles/Vol] 139 mmol/L Normal 136-145 [facility] Comment on above: Performed By: #### L 500.4050, L501.9520, L501.9910, L100.0100, L506.1000, L500.4100, L501.9985 #### [facility] [address] [place], [address] T PROT 7.5 g/dL Normal 6.4-8.2 [facility] Comment on above: Performed By: #### L 500.4050, L501.9520, L501.9910, L100.0100, L506.1000, L500.4100, L501.9985 #### [facility] [address] [place], [place], [id number] Urea nitrogen [Mass/Vol] 9 mg/dL Normal 7-18 [facility] Comment on above: Performed By: #### L 500.4050, L501.9520, L501.9910, L100.0100, L506.1000, L500.4100, L501.9985 #### [facility] [address] [place], [place], [id number] Hemoglobin A1con 04-13-2024 HbA1c (Bld) [Mass fraction] 5.4 % Normal 3.8-5.6 [facility] Comment on above: Result Comment: Norm al < 5.7 % Prediabetic 5.7 - 6.4 % Diabetic >or= 6.5 % Please note range changes. Performed By: #### L 500.4050, L501.9520, L501.9910, L100.0100, L506.1000, L500.4100, L501.9985 #### [facility] [address] [place], [place], [id number] Lipid Profileon 04-13-2024 Cholesterol [Mass/Vol] 184 mg/dL Normal 200 [facility] Comment on above: Result Comment: <200 mg/dL Desirable 200-240 mg/dL Borderline >240 mg/dL High Risk Performed By: #### L 500.4050, L501.9520, L501.9910, L100.0100, L506.1000, L500.4100, L501.9985 #### [facility] [address] [place], [place], [id number] Cholesterol in HDL [Mass/Vol] 61 mg/dL Normal [facility] Comment on above: Result Comment: The drugs N-Acetylcysteine and Metamizole may falsely depress this assay. Reference Range HDL <40 mg/dL Low HDL Cholesterol HDL >or= 60 mg/dL High HDL Cholesterol Performed By: #### L 500.4050, L501.9520, L501.9910, L100.0100, L506.1000, L500.4100, L501.9985 #### [facility] [address] [place], [address] Cholesterol in LDL [Mass/Vol] 110 mg/dL Normal 0-130 [facility] Comment on above: Performed By: #### L 500.4050, L501.9520, L501.9910, L100.0100, L506.1000, L500.4100, L501.9985 #### [facility] [address] [place], [address] Cholesterol in VLDL [Mass/Vol] 13 mg/dL Normal 5-40 [facility] Comment on above: Performed By: #### L 500.4050, L501.9520, L501.9910, L100.0100, L506.1000, L500.4100, L501.9985 #### [facility] [address] [place], [address] Triglyceride [Mass/Vol] 65 mg/dL Normal [facility] Comment on above: Result Comment: The drugs N-Acetylcysteine and Metamizole may falsely depress this assay. Serum Triglycerides Reference Interval Normal <150 mg/dL Borderline high 150 - 199 mg/dL High 200 - 499 mg/dL Very High > or = 500 mg/dL Performed By: #### L 500.4050, L501.9520, L501.9910, L100.0100, L506.1000, L500.4100, L501.9985 #### [facility] [address] [place], [address] PSA,Total - Annual Screenon 04-13-2024 PSA,TOT SCREEN 0.17 ng/mL Normal 0.00-4.00 [facility] Comment on above: Result Comment: This test was performed using the TPSA assay method for the [employer] chemistry system. Values obtained with different assay methods cannot be used interchangably. When changing PSA assays in the course of monitoring a patient, additional sequential testing should be carried out to confirm baseline values. Performed By: #### L 500.4050, L501.9520, L501.9910, L100.0100, L506.1000, L500.4100, L501.9985 #### [facility] [address] [place], [place], [id number] Thyroid Stim Hormone (TSH)on 04-13-2024 TSH 1.290 uIU/mL Normal 0.358-3.740 [facility] Comment on above: Performed By: #### L 500.4050, L501.9520, L501.9910, L100.0100, L506.1000, L500.4100, L501.9985 #### [facility] [address] [place], [address] Vitamin D,25 Hydroxyon 04-13 Vitamin D 25-OH 33.6 ng/mL Normal [facility] Comment on above: Result Comment: Laura min D 25(OH) Status Range Deficiency <20 ng/mL (50nmol/L) Insufficiency 20 - 30 ng/mL (50 - 75 nmol/L) Sufficiency 30 - 100 ng/mL (75 - 250 nmol/L) Toxicity >100 ng/mL (>250 nmol/L) Performed By: #### L 500.4050, L501.9520, L501.9910, L100.0100, L506.1000, L500.4100, L501.9985 #### [facility] [address] [place], [place], [id number] .Auto Diffon 08-18-2023 Basophil, Absolute 0.0 10 3/mcL Normal 0.0-0.2 [facility] ([place]) Comment on above: Performed By: #### A 1C, CBC, ADIFF, ANEU, TSH, CMP, GFR, LIPID #### Lucinda Ryan [address] [place], [place] [address] Basophils/100 WBC (Bld) 0.6 % Normal 0.0-2.5 [facility] ([place]) Comment on above: Performed By: #### A 1C, CBC, ADIFF, ANEU, TSH, CMP, GFR, LIPID #### [address] [address] Eosinophil, Absolute 0.1 10 3/mcL Normal 0.0-0.4 [facility] ([place] Comment on above: Performed By: #### A 1C, CBC, ADIFF, ANEU, TSH, CMP, GFR, LIPID #### [address] [address] Eosinophils/100 WBC (Bld) 1.3 % Normal 0.0-7.0 [facility] ([place] Comment on above: Performed By: #### A 1C, CBC, ADIFF, ANEU, TSH, CMP, GFR, LIPID #### [address] [address] Lymphocyte, Absolute 2.5 10 3/mcL Normal 0.8-3.9 [facility] ([place] Comment on above: Performed By: #### A 1C, CBC, ADIFF, ANEU, TSH, CMP, GFR, LIPID #### [address] [address] Lymphocytes/100 WBC (Bld) 34.7 % Normal 10.0-50.0 [facility] ([place] Comment on above: Performed By: #### A 1C, CBC, ADIFF, ANEU, TSH, CMP, GFR, LIPID #### [address] [address] Monocyte, Absolute 0.6 10 3/mcL Normal 0.2-1.0 [facility] ([place]) Comment on above: Performed By: #### A 1C, CBC, ADIFF, ANEU, TSH, CMP, GFR, LIPID #### [address] [address] Monocytes/100 WBC (Bld) 7.8 % Normal 1.7-13.0 [facility] ([place] Comment on above: Performed By: #### A 1C, CBC, ADIFF, ANEU, TSH, CMP, GFR, LIPID #### [address] [address] Neutrophils/100 WBC (Bld) 55.6 % Normal 37.0-80.0 [facility] ([place] Comment on above: Performed By: #### A 1C, CBC, ADIFF, ANEU, TSH, CMP, GFR, LIPID #### [address] [address] .GFRon 08-18-2023 GFR 73 ml/min/1.73sqm Normal [facility] ([place] Comment on above: Result Comment: GFR Population mean for , Non- Americans Ages 20-29 = 116 mL/min/1.73 sq.m. Ages 30-39 = 107 mL/min/1.73 sq.m. Ages 40-49 = 99 mL/min/1.73 sq.m. Ages 50-59 = 93 mL/min/1.73 sq.m. Ages 60-69 = 85 mL/min/1.73 sq.m. Ages 70+ = 75 mL/min/1.73 sq.m. Chronic Kidney Disease: Less than 60 mL/min/1.73 square meters End Stage Renal Disease: Less than 15 mL/min/1.73 square meters Performed By: #### A 1C, CBC, ADIFF, ANEU, TSH, CMP, GFR, LIPID #### [address] [address] GFR Non- 60 ml/min/1.73sqm Normal [facility] ([place] Comment on above: Result Comment: GFR Population mean for , Non- Americans Ages 20-29 = 116 mL/min/1.73 sq.m. Ages 30-39 = 107 mL/min/1.73 sq.m. Ages 40-49 = 99 mL/min/1.73 sq.m. Ages 50-59 = 93 mL/min/1.73 sq.m. Ages 60-69 = 85 mL/min/1.73 sq.m. Ages 70+ = 75 mL/min/1.73 sq.m. Chronic Kidney Disease: Less than 60 mL/min/1.73 square meters End Stage Renal Disease: Less than 15 mL/min/1.73 square meters Performed By: #### A 1C, CBC, ADIFF, ANEU, TSH, CMP, GFR, LIPID #### [address] [address] .NEUABSon 08-18-2023 Neutrophil, Absolute 4.0 10 3/mcL Normal 2.9-6.2 [facility] ([place]) Comment on above: Performed By: #### A 1C, CBC, ADIFF, ANEU, TSH, CMP, GFR, LIPID #### [place] [id number] A1Con 08-18-2023 HbA1c (Bld) [Mass fraction] 6.0 % Normal 4.3-6.4 [facility] ([place]) Comment on above: Performed By: #### A 1C, CBC, ADIFF, ANEU, TSH, CMP, GFR, LIPID #### [place] [address] CBCon 08-18-2023 Erythrocyte distribution width (RBC) [Ratio] 15.4 % High 11.5-14.5 [facility] ([place] Comment on above: Performed By: #### A 1C, CBC, ADIFF, ANEU, TSH, CMP, GFR, LIPID #### [place] [address] Hematocrit (Bld) [Volume fraction] 44.3 % Normal 42.0-52.0 [facility] ([place] Comment on above: Performed By: #### A 1C, CBC, ADIFF, ANEU, TSH, CMP, GFR, LIPID #### [address] [address] Hgb 14.8 G/dL Normal 14.0-18.0 [facility] ([place] Comment on above: Performed By: #### A 1C, CBC, ADIFF, ANEU, TSH, CMP, GFR, LIPID #### [place] [address] MCH (RBC) [Entitic mass] 27.5 pg Normal 27.0-31.2 [facility] ([place] Comment on above: Performed By: #### A 1C, CBC, ADIFF, ANEU, TSH, CMP, GFR, LIPID #### [place] [address] MCHC 33.3 G/dL Normal 31.8-35.4 [facility] ([place] Comment on above: Performed By: #### A 1C, CBC, ADIFF, ANEU, TSH, CMP, GFR, LIPID #### [address] [address] MCV (RBC) [Entitic vol] 82.5 fL Normal 80.0-94.0 [facility] ([place] Comment on above: Performed By: #### A 1C, CBC, ADIFF, ANEU, TSH, CMP, GFR, LIPID #### [address] [address] Platelet 278 10 3/mcL Normal 130-400 [facility] ([place]) Comment on above: Performed By: #### A 1C, CBC, ADIFF, ANEU, TSH, CMP, GFR, LIPID #### [address] [address] Platelet mean volume (Bld) [Entitic vol] 7.6 fL Normal 7.4-10.4 [facility] ([place]) Comment on above: Performed By: #### A 1C, CBC, ADIFF, ANEU, TSH, CMP, GFR, LIPID #### [address] [address] RBC 5.37 10 6/mcL Normal 4.04-6.13 [facility] ([place]) Comment on above: Performed By: #### A 1C, CBC, ADIFF, ANEU, TSH, CMP, GFR, LIPID #### [address] [address] WBC 7.2 10 3/mcL Normal 4.6-10.8 [facility] ([place]) Comment on above: Performed By: #### A 1C, CBC, ADIFF, ANEU, TSH, CMP, GFR, LIPID #### [address] [address] CMPon 08-18-2023 Albumin Level 3.7 G/dL Normal 3.4-4.8 [facility] ([place]) Comment on above: Performed By: #### A 1C, CBC, ADIFF, ANEU, TSH, CMP, GFR, LIPID #### [address] [address] Albumin/Globulin [Mass ratio] 0.9 {ratio} Low 1.1-2.5 [facility] ([place] Comment on above: Performed By: #### A 1C, CBC, ADIFF, ANEU, TSH, CMP, GFR, LIPID #### [address] [address] ALP [Catalytic activity/Vol] 91 U/L Normal 40-135 [facility] ([place] Comment on above: Performed By: #### A 1C, CBC, ADIFF, ANEU, TSH, CMP, GFR, LIPID #### [address] [address] ALT [Catalytic activity/Vol] 43 U/L Normal 16-63 [facility] ([place] Comment on above: Performed By: #### A 1C, CBC, ADIFF, ANEU, TSH, CMP, GFR, LIPID #### [address] [address] AST [Catalytic activity/Vol] 34 U/L Normal 10-40 [facility] ([place] Comment on above: Performed By: #### A 1C, CBC, ADIFF, ANEU, TSH, CMP, GFR, LIPID #### [address] [address] Bili Total 0.5 mg/dL Normal 0.2-1.0 [facility] ([place] Comment on above: Result Comment: Use of this assay is not recommended for patients undergoing treatment with eltrombopag due to the potential for falsely elevated results. Performed By: #### A 1C, CBC, ADIFF, ANEU, TSH, CMP, GFR, LIPID #### [address] [address] BUN/Creatinine Ratio 6 ratio Low 7-27 [facility] ([place] Comment on above: Performed By: #### A 1C, CBC, ADIFF, ANEU, TSH, CMP, GFR, LIPID #### [address] [address] Calcium [Mass/Vol] 9.0 mg/dL Normal 8.4-10.2 [facility] ([place]) Comment on above: Performed By: #### A 1C, CBC, ADIFF, ANEU, TSH, CMP, GFR, LIPID #### [address] [address] Chloride [Moles/Vol] 97 mmol/L Low 98-107 [facility] ([place]) Comment on above: Performed By: #### A 1C, CBC, ADIFF, ANEU, TSH, CMP, GFR, LIPID #### [address] [address] CO2 [Moles/Vol] 31 mmol/L Normal 23-31 [facility] ([place]) Comment on above: Performed By: #### A 1C, CBC, ADIFF, ANEU, TSH, CMP, GFR, LIPID #### [address] [address] Creatinine [Mass/Vol] 1.21 mg/dL Normal 0.70-1.30 [facility] ([place]) Comment on above: Performed By: #### A 1C, CBC, ADIFF, ANEU, TSH, CMP, GFR, LIPID #### [address] [address] Electrolyte Balance 11.0 mEq/L Normal 4.0-15.0 [facility] ([place]) Comment on above: Performed By: #### A 1C, CBC, ADIFF, ANEU, TSH, CMP, GFR, LIPID #### [address] [address] Globulin 3.9 G/dL Normal [facility] ([place]) Comment on above: Performed By: #### A 1C, CBC, ADIFF, ANEU, TSH, CMP, GFR, LIPID #### [address] [address] Glucose [Mass/Vol] 115 mg/dL Normal 80-115 [facility] ([place]) Comment on above: Performed By: #### A 1C, CBC, ADIFF, ANEU, TSH, CMP, GFR, LIPID #### [address] [address] Potassium [Moles/Vol] 4.3 mmol/L Normal 3.5-5.1 [facility] ([place] Comment on above: Performed By: #### A 1C, CBC, ADIFF, ANEU, TSH, CMP, GFR, LIPID #### [address] [address] Sodium [Moles/Vol] 139 mmol/L Normal 136-145 [facility] ([place]) Comment on above: Performed By: #### A 1C, CBC, ADIFF, ANEU, TSH, CMP, GFR, LIPID #### [address] [address] Total Protein 7.6 G/dL Normal 6.4-8.2 [facility] ([place]) Comment on above: Performed By: #### A 1C, CBC, ADIFF, ANEU, TSH, CMP, GFR, LIPID #### [address] [address] Urea nitrogen [Mass/Vol] 7 mg/dL Normal 7-18 [facility] ([place]) Comment on above: Performed By: #### A 1C, CBC, ADIFF, ANEU, TSH, CMP, GFR, LIPID #### [address] [address] LIPIDon 08-18-2023 Cholesterol [Mass/Vol] 206 mg/dL High 0-200 [facility] ([place]) Comment on above: Result Comment: Chol esterol Reference Interval: Less than 200 Desirable 200-239 Borderline high risk 240 and above High risk Performed By: #### A 1C, CBC, ADIFF, ANEU, TSH, CMP, GFR, LIPID #### [address] [address] Cholesterol in HDL [Mass/Vol] 51 mg/dL Normal 40-60 [facility] ([place]) Comment on above: Performed By: #### A 1C, CBC, ADIFF, ANEU, TSH, CMP, GFR, LIPID #### [address] [address] Cholesterol in LDL [Mass/Vol] 136 mg/dL High 0-130 [facility] ([place]) Comment on above: Performed By: #### A 1C, CBC, ADIFF, ANEU, TSH, CMP, GFR, LIPID #### [address] [place], [place] [address] Triglyceride [Mass/Vol] 97 mg/dL Normal 0-150 [facility] ([place]) Comment on above: Result Comment: Trig lyceride Reference Interval: Less than 150 Normal 150-199 Borderline high risk 200-499 High risk 500 or higher Very high risk Performed By: #### A 1C, CBC, ADIFF, ANEU, TSH, CMP, GFR, LIPID #### [address] [place], [place] [address] TSHon 08-18-2023 TSH Qn 2.10 m[IU]/L Normal 0.36-3.74 [facility] ([place]) Comment on above: Performed By: #### A 1C, CBC, ADIFF, ANEU, TSH, CMP, GFR, LIPID #### [id number] [place], [place] [address] CR Knee 1 or 2 Views Righton 09-21-2020 CR Knee 1 or 2 Views Right Patient Name: SHAQ ABURTO Diagnostic Radiology ACCESSION EXAM DATE/TIME PROCEDURE ORDERING PROVIDER [id number] 09/21/2020 12:30 EDT CR Knee 1 or 2 Views [id number] -LIZETTE HOYT Right CPT code 52620 Reason For Exam (CR Knee 1 or 2 Views Right) pain in right knee Report EXAMINATION: Right knee: AP and lateral views. COMPARISON: None. REASON FOR STUDY: Right knee pain. FINDINGS: Fixation devices are observed in the femur and proximal tibia. There is residual bone distortion from remote injury. Bones are demineralized. Periarticular osteophytes are observed at the patellofemoral and tibiofemoral joints. Soft tissues appear normal. CONCLUSION(S): 1. No evidence of acute bone injury or malalignment. 2. Osteoarthrosis. 3. Residual bone distortion from remote injury. Report Dictated on Final Dictating Physician: MD BULLOCK B NELSON Signed Date and Time: 09/21/2020 4:13 pm Signed by: MD BULLOCK B NELSON Transcribed Date and Time: 09/21/2020 4:14 Normal [facility] CR Spine Lumbosacral 2 or 3 Viewson 09-21-2020 CR Spine Lumbosacral 2 or 3 Views Patient Name: SHAQ ABURTO Diagnostic Radiology ACCESSION EXAM DATE/TIME PROCEDURE ORDERING PROVIDER [id number] 09/21/2020 12:30 EDT CR Spine Lumbosacral 2 [id number] -HOYT, LIZETTE or 3 Views CPT code 80189 Reason For Exam (CR Spine Lumbosacral 2 or 3 Views) low back pain Report LUMBAR SPINE 3 VIEWS CLINICAL INDICATION: low back pain TECHNIQUE: 3 views of the lumbar spine. COMPARISON: None. FINDINGS: No acute loss of height or gross malalignment of vertebral bodies. No osseous destruction. Mild-moderate disc space narrowing and endplate degenerative change in the L4-L5 level. Mild endplate sclerosis/spurring in L1-L2 and L3-L4 levels. More pronounced facet sclerosis/arthrosis in the lower lumbar spine. Similar degenerative change in visualized lower thoracic spine. Paraspinal soft tissues grossly unremarkable. IMPRESSION: 1. No acute osseous abnormality. 2. Degenerative spondylosis, most pronounced at L4-L5 level. Report Dictated on Final Dictating Physician: MD WILSON WENDELL Signed Date and Time: 09/21/2020 7:30 pm Signed by: MD WILSON WENDELL Transcribed Date and Time: 09/21/2020 7:31 Normal [facility] Encounters Encounter Date Encounter Type Care Provider Facility Start: 02-15-2025 ambulatory [facility] Fa cility:[facility] Start: 04-13-2024 End: 04-13-2024 ambulatory [facility] Facility:[facility] Start: 08-18-2023 End: 08-19-2023 ambulatory [facility] [employer] Facility:B Payers Date Payer Category Payer Medicare [id number] 2024 Self-pay 2023 Unknown [id number] 1960 Unknown [id number] Unknown [id number] Unknown [id number] Summary Purpose Family History No Family History Records FoundNo Family History Records FoundNo Family History Records Found Advance Directives No Advanced Directives Records FoundNo Advanced Directives Records FoundNo Advanced Directives Records Found Additional Source Comments (unrecognized sect ion and content) No Status Records FoundNo Status Records FoundNo Status Records Found INFORMATION SOURCE (unrecogn ized section and content) DATE CREATED AUTHOR 10/04/2020 [facility] DATE CREATED AUTHOR AUTHOR'S ORGANIZ ATION 08/21/2023 [facility] ([place]) DATE CREATED AUTHOR AUTHOR'S ORGANIZ ATION 02/17/2025 [facility] FOR RECORDS PERTAINING TO PATIENTS WHO ARE OR HAVE BEEN ENROLLED IN A CHEMICAL DEPENDENCY/SUBSTANCEABUSE PROGRAM, SOME INFORMATION MAY BE OMITTED. This clinical summary was aggregated from multiple sources. Caution should be exercised in using it in the provision of clinical care. This summary normalizes information from multiple sources, and as a consequence, information in this document may materially change the coding, format and clinical context of patient data. In addition, data may be omitted in some cases. CLINICAL DECISIONS SHOULD BE BASED ON THE PRIMARY CLINICAL RECORDS. [employer] [facility]. provides no warranty or guarantee of the accuracy or completeness of information in this document.
[2025-02-28 11:04] LABS: AST(SGOT) 48 U/L (<=37); Alanine Aminotransfer ALT/SGPT 40 U/L (<=46); Albumin, Serum 4.1 g/dL (3.4-4.8); Alkaline Phosphatase 90 U/L (40-129); Anion Gap 11 (5-15); BUN 5 mg/dL (4-19); BUN/Creat Ratio 5.6 RATIO (10-20); Calcium,Total 9.3 mg/dL (7.6-11.0); Carbon Dioxide 27.4 mmol/L (21.0-32.0); Chloride 98 mmol/L (98-108); Cholesterol 175 mg/dL (<=200); Globulin 2.9 g/dL (2.2-4.2); Glucose 127 mg/dL (70-99); Low Density Lipoprotein Calc. 70 mg/dL; Potassium 3.9 mmol/L (3.3-5.1); Triglycerides 57 mg/dL; Very Low Density Lipoprotein 11 mg/dL (5-40); Vitamin D,25 Hydroxy 53.4 ng/mL (30-100); cholesterol:hdl ratio screen 1.86
== END | disposition home or self-care (01) ==
LOC: LAB 09:30
PROVIDERS: PCP Nurse Practitioner Family; Referring Provider Nurse Practitioner Family; Visit Provider Nurse Practitioner Family
DX: R73.03 Prediabetes (principal); E78.5 Hyperlipidemia, unspecified; I10 Essential (primary) hypertension; E55.9 Vitamin D deficiency, unspecified
CPT/HCPCS: 36415; 80053; 80061; 82306; 83036; 84443; 85025